=== PATIENT | female | born 1945 | race Caucasian/White ===

== ENCOUNTER 2021-11-25 17:18 | Inpatient (IN) | payer OTHER ==
[~2021-11-25] VITALS: Ht 162.6 cm; Wt 49.9 kg
[2021-11-25] MEDS ORDERED: ATORVASTATIN CA10 MG PO (17:28)
[2021-11-25] MEDS ORDERED: MIRTAZAPINE15 M1 PO (17:29)
[2021-11-25] MEDS ORDERED: FENOFIBRIC ACI105 MG PO (17:29)
[2021-11-28] MEDS ORDERED: PANTOPRAZOLE SO20 MG (14:57)
[2021-11-28] MEDS ORDERED: INTESTINEX680 M1 (14:57)
[2021-11-28] MEDS ORDERED: AZELASTINE137 MCG/0. (14:57)
[2021-11-28] MEDS ORDERED: FENOFIBRIC ACI135 MG (14:57)
[2021-12-06] MEDS ORDERED: PEPCID AC20 MG PO (11:28)
== END 2021-12-06 14:44 | disposition home or self-care (01) | DRG 386 ==
LOC: ER 17:18 → SURH 11-26 09:07
PROVIDERS: ADMIT Surgery; ATTEND Surgery
PROC: BW21ZZZ Computerized Tomography (CT Scan) of Abdomen and Pelvis (ICD-10-PCS; principal; 2021-11-25)
PROC: 02HV33Z Insertion of Infusion Device into Superior Vena Cava, Percutaneous Approach (ICD-10-PCS; 2021-11-26)
PROC: BW2110Z Computerized Tomography (CT Scan) of Abdomen and Pelvis using Low Osmolar Contrast, Unenhanced and Enhanced (ICD-10-PCS; 2021-11-30)
DX: K50.014 Crohn's disease of small intestine with abscess (principal); F31.89 Other bipolar disorder; R19.7 Diarrhea, unspecified; D64.89 Other specified anemias; F41.8 Other specified anxiety disorders; Z20.822 Contact with and (suspected) exposure to COVID-19